=== PATIENT | male | born 1950 | race Caucasian/White ===

== ENCOUNTER 2018-06-09 05:29 | Day surgery (SDC) | payer MEDICARE, BC ==
[2018-06-05 15:11] LABS: BASOPHILS % (AUTO) 0.6 % (0-1); EOSINOPHILS # (AUTO) 0.1 X10'3 (0-0.9); EOSINOPHILS % (AUTO) 2.1 % (0-6); LYMPHOCYTES # (AUTO) 1.8 X10'3 (1.1-4.8); LYMPHOCYTES % (AUTO) 27.7 % (21-51); MEAN CORPUSCULAR HEMOGLOBIN 30.1 PG (27.0-31.0); MEAN CORPUSCULAR HGB CONC 34.2 % (33.0-36.5); MEAN CORPUSCULAR VOLUME 88.2 FL (78-98); MONOCYTES # (AUTO) 0.5 X10'3 (0-0.9); MONOCYTES % (AUTO) 7.8 % (2-12); NEUTROPHILS # (AUTO) 4.1 X10'3 (1.8-7.7); NEUTROPHILS % (AUTO) 61.8 % (42-75); PRE OP HEMATOCRIT 44.9 % (42.0-52.0); PRE OP HEMOGLOBIN 15.3 g/dL (14.0-17.9); PRE OP PLATELET COUNT 192 X10'3 (140-440); RED BLOOD COUNT 5.09 X10'6 (4.70-6.10); RED CELL DISTRIBUTION WIDTH 13.3 % (11.5-14.5)
[2018-06-05 15:28] LABS: ALBUMIN/GLOBULIN RATIO 1.3 (1.1-1.5); ALKALINE PHOSPHATASE 54 IU/L (46-116); BLOOD UREA NITROGEN 21 MG/DL (7-18); BUN/CREATININE RATIO 20.8 (5.4-32.0); CHLORIDE 106 MMOL/L (99-107); CREATININE 1.01 MG/DL (0.60-1.10); PRE OP ALT 49 U/L (30-65); PRE OP ANION GAP 9 (8-16); PRE OP AST 25 U/L (10-37); PRE OP BILIRUB, TOTAL 0.4 MG/DL (0.0-1.0); PRE OP GLUCOSE 125 MG/DL (70-104); PRE OP POTASSIUM 4.3 MMOL/L (3.4-5.1); PRE OP SODIUM 142 MMOL/L (135-145); TOTAL CARBON DIOXIDE 27.5 MMOL/L (24-32); TOTAL PROTEIN 7.1 G/DL (6.4-8.2); eGFR 74 ML/MIN
[2018-06-09] VITALS (11 sets, daily range): BP systolic 116–127; BP diastolic 64–83
[~2018-06-09] VITALS: Ht 175.3 cm; Wt 97.5 kg
[~2018-06-09 05:29] MED LIST: ASPI81TA52 PO; GLIM2TAB2 PO; LISI10TA4 PO; MULT1TAB74 PO; TAMS0.4C32 PO; ringers solution, lacted 1,000 ML IV SCH
[2018-06-09] MEDS ORDERED: cefazolin/dext.iso 2gm/100 ML IV ONE (05:30)
[2018-06-09] MEDS ORDERED: famotidine 20mg tablet PO ONE (05:30)
[2018-06-09] MEDS ORDERED: LIDOcaine 1% (10mg/ml) 2ml vial ONE (05:41)
[2018-06-09] MEDS ORDERED: ondansetron/PF 4mg/2ml inj ONE (07:05)
[2018-06-09] MEDS ORDERED: sevoflurane 250ml liquid IH ONE (07:05)
[2018-06-09] MEDS ORDERED: cocaine 4% topical solution 4ml bottle ONE (07:10)
[2018-06-09] MEDS ORDERED: cloNIDine hcl/PF 100mcg/ml inj ONE (07:10)
[2018-06-09] MEDS ORDERED: fentaNYL/PF 50MCG/1 ML 2ML syringe ONE (07:12)
[2018-06-09] MEDS ORDERED: MIDAZolam 5mg/5ml vial ONE (07:12)
[2018-06-09] MEDS ORDERED: ROPIVAcaine 0.5% (5mg/ml) 30ml vial ONE (07:12)
[2018-06-09] MEDS ORDERED: propofol inj 20 ML IV ONE (07:24)
[2018-06-09] MEDS ORDERED: dexamethasone sod phosphate 4mg/ml inj. ONE (07:33)
[2018-06-09] MEDS ORDERED: ringers solution, lacted 1,000 ML IV SCH (08:04)
[2018-06-09] MEDS ORDERED: ondansetron/PF 4mg/2ml inj IV PRN (08:05)
[2018-06-09] MEDS ORDERED: morphine 4 MG/ML inj SYRINge IV PRN ×2 (08:05)
[2018-06-09] MEDS ORDERED: meperidine/PF 25mg/ml syringe IV PRN ×3 (08:05)
[2018-06-09] MEDS ORDERED: proCHLORperazine 10 MG/2 ml inj IV PRN (08:05)
[2018-06-09] MEDS ORDERED: BUPIVAcaine/PF 2.5mg/ml (0.25%) 10ml vial ONE (09:19)
--- NOTE | 2018-06-09 09:45 | NUR ---
Received from OR via [facility], accompanied by Anesthesiologist SP and report given by Anesthesiolgist. PT DROWSY, NO S/S OF PAIN, LEFT ARM DRSG CDI, ARM IN IMMOBILIZER, FINGERS PWD. Addendum: 06/09/18 at 1048 by Deanne Collins RN Amended: Links added.
[2018-06-09] MEDS ORDERED: HYDROcodone/acetaminophen 10/325mg tab PO PRN (10:00)
[2018-06-09] MEDS ORDERED: insulin regular, human 10 units/0.1 ml syringe SQ ONE (10:00)
== END 2018-06-09 11:15 | disposition home or self-care (01) ==
LOC: PAS 05:29
PROVIDERS: ATTEND Orthopaedic Surgery
DX: M75.122 Complete rotator cuff tear or rupture of left shoulder, not specified as traumatic (principal); M75.22 Bicipital tendinitis, left shoulder; S43.432A Superior glenoid labrum lesion of left shoulder, initial encounter; X58.XXXA Exposure to other specified factors, initial encounter; Y93.9 Activity, unspecified; Y92.9 Unspecified place or not applicable; Y99.9 Unspecified external cause status; M19.012 Primary osteoarthritis, left shoulder; G89.18 Other acute postprocedural pain; E11.9 Type 2 diabetes mellitus without complications; Z79.82 Long term (current) use of aspirin; Z79.899 Other long term (current) drug therapy; Z98.890 Other specified postprocedural states
CPT/HCPCS: 29822; 29824; 29826; 29827; 36415; 64415; 80053; 82948; 85025; A6449; C1713; J0690; J0735; J1100; J1815; J2250; J2405; J2704; J3010; J3490; J7120; A4565; A7000; J2795; J7030